=== PATIENT | female | born 1965 | race Caucasian/White ===

== ENCOUNTER → 2017-02-17 | Outpatient (CLI) | payer BC ==
[~2017-02-17] VITALS: Ht 160 cm; Wt 68.0 kg
[~2017-02-17] MED LIST: FOLIC ACID1 MG PO; METHOTREXATE2.5 MG PO; OTEZLA30 MG PO
== END | disposition home or self-care (01) ==
LOC: AMB 10:29
PROC: 0DBP8ZX Excision of Rectum, Via Natural or Artificial Opening Endoscopic, Diagnostic (ICD-10-PCS; principal; 2017-02-17)
DX: Z12.11 Encounter for screening for malignant neoplasm of colon (principal); K62.1 Rectal polyp; K92.1 Melena; K64.8 Other hemorrhoids; R17 Unspecified jaundice; L40.50 Arthropathic psoriasis, unspecified; Z87.891 Personal history of nicotine dependence; Z79.899 Other long term (current) drug therapy
CPT/HCPCS: 88305; J1100; J2250; J2405